=== PATIENT | male | born 1940 | race Hispanic/Latino ===

== ENCOUNTER → 2017-09-26 | Outpatient (CLI) | payer OTHER ==
[~2017-09-26] MED LIST: AMLO5TAB2 PO; CHLO10TA10 PO; CLOP75TA32 PO; HUM100IN SQ; LISI10TA7 PO; METO-408 PO; SIMV80TA5 PO; SITA1TAB6 PO; SODI650T PO; TAMS0.4C32 PO; TYL3 PO
== END | disposition home or self-care (01) ==
LOC: RAH 14:05
PROVIDERS: ATTEND Internal Medicine Cardiovascular Disease
DX: G11.0 Congenital nonprogressive ataxia (principal); R90.82 White matter disease, unspecified
CPT/HCPCS: 70450

== ENCOUNTER → 2018-05-10 | Outpatient (CLI) | payer OTHER ==
[~2018-05-10] MED LIST changes: -AMLO5TAB2 PO; +AMLO5TAB7 PO; +LIDOCAINE/PRILOCAINE CREAM 5GM TUBE TP ONE; -SIMV80TA5 PO; +SIMV80TA7 PO
[2018-05-10 13:23] VITALS: BP 190/93
== END | disposition home or self-care (01) ==
LOC: WHH 09:30
PROVIDERS: ATTEND Podiatrist Foot & Ankle Surgery
DX: E11.621 Type 2 diabetes mellitus with foot ulcer (principal); L97.521 Non-pressure chronic ulcer of other part of left foot limited to breakdown of skin; I10 Essential (primary) hypertension; E78.5 Hyperlipidemia, unspecified; E11.42 Type 2 diabetes mellitus with diabetic polyneuropathy; B35.1 Tinea unguium; L60.0 Ingrowing nail; Z79.4 Long term (current) use of insulin
CPT/HCPCS: 11721; 11730; J3490; L3260

== ENCOUNTER → 2018-06-19 | Outpatient (CLI) | payer OTHER ==
[~2018-06-19] MED LIST changes: +ISOVUE-370 50ML VIAL IV ONE; -LIDOCAINE/PRILOCAINE CREAM 5GM TUBE TP ONE
== END | disposition home or self-care (01) ==
LOC: OIH 08:17
PROVIDERS: ATTEND Urology
DX: K80.20 Calculus of gallbladder without cholecystitis without obstruction (principal); N28.89 Other specified disorders of kidney and ureter
CPT/HCPCS: 74178; Q9967

== ENCOUNTER → 2018-12-25 | Outpatient (CLI) | payer OTHER ==
[~2018-12-25] MED LIST changes: -AMLO5TAB7 PO; +AMLO5TAB9 PO; -ISOVUE-370 50ML VIAL IV ONE; -SIMV80TA7 PO; +SIMV80TA91 PO
== END | disposition home or self-care (01) ==
LOC: SHCH 08:13
PROVIDERS: ATTEND Internal Medicine Cardiovascular Disease
DX: I51.7 Cardiomegaly (principal); I34.0 Nonrheumatic mitral (valve) insufficiency; Z95.2 Presence of prosthetic heart valve
CPT/HCPCS: 93306

== ENCOUNTER 2019-07-04 08:24 | Emergency (ER) | payer OTHER ==
[2019-07-04] MEDS ORDERED: ONDANSETRON HCL 4 MG/2 ML VIAL ONE (08:48)
[2019-07-04] MEDS ORDERED: MORPHINE SULFATE 4 MG/1ML SYG ONE ×2 (08:48→11:37)
[2019-07-04 08:59] LABS: BASOPHILS % (AUTO) 0.4 % (0.0-5.0); EOSINOPHILS % (AUTO) 1.5 % (0.0-8.0); HEMATOCRIT 43.9 % (42-54); LYMPHOCYTES % (AUTO) 28.5 % (21.0-51.0); MEAN CORPUSCULAR HEMOGLOBIN 30.2 pg (27.0-33.0); MEAN CORPUSCULAR HGB CONC 33.7 g/dL (32.0-36.0); MEAN CORPUSCULAR VOLUME 89.6 fL (79-99); MONOCYTES % (AUTO) 5.7 % (3.0-13.0); NEUTROPHILS % (AUTO) 63.9 % (40.0-77.0); PLATELET COUNT (AUTO) 202 K/uL (130-400); RED CELL DISTRIBUTION WIDTH 14.6 % (11.0-15.5); WHITE BLOOD COUNT (AUTO) 8.2 K/uL (4.8-10.8)
[2019-07-04 09:01] LABS: APPEARANCE,URINE Clear (CLEAR); BILIRUBIN,URINE Negative (NEGATIVE); COLOR,URINE Yellow (YELLOW); GLUCOSE, URINE (UA) >=1000 mg/dL (NEGATIVE); KETONES,URINE Negative (NEGATIVE); LEUKOCYTE ESTERASE ,URINE Negative (NEGATIVE); NITRATE,URINE Negative (NEGATIVE); OCCULT BLOOD,URINE Negative (NEGATIVE); PROTEIN,URINE 300 mg/dL (NEGATIVE)
[2019-07-04 09:04] LABS: CREATININE 1.5 mg/dL (0.5-1.5); POTASSIUM 4.2 mmol/L (3.5-5.1)
[2019-07-04 09:05] LABS: INR 0.93 (0.85-1.15); PARTIAL THROMBOPLASTIN TIME 24.5 SEC (26.3-35.5); PROTHROMBIN TIME 9.8 SEC (9.6-11.6)
[2019-07-04 09:09] LABS: ALBUMIN 3.5 g/dL (3.5-5.0); BILIRUBIN,TOTAL 0.4 mg/dL (0.2-1.0); TOTAL PROTEIN, SERUM 7.2 g/dL (6.0-8.3)
[2019-07-04 09:14] LABS: BACTERIA,URINE Rare /HPF (None Seen); MUCUS,URINE Rare LPF (None Seen); RBC,URINE 0-1 /HPF (0-1); SPERM,URINE Moderate /HPF (None Seen); SQUAMOUS EPITHELIAL CELL,UR Rare /HPF (0-2)
== END 2019-07-04 12:27 | disposition home or self-care (01) ==
LOC: EDH 08:24
DX: K57.92 Diverticulitis of intestine, part unspecified, without perforation or abscess without bleeding (principal); E11.9 Type 2 diabetes mellitus without complications; E78.5 Hyperlipidemia, unspecified; I10 Essential (primary) hypertension; Z98.890 Other specified postprocedural states; Z87.891 Personal history of nicotine dependence
CPT/HCPCS: 36415; 74176; 80053; 81001; 82550; 83690; 84484; 85025; 85610; 85730; 93005; 96374; 96375; 96376; 99285; J2270 ×2; J2405

== ENCOUNTER 2019-11-20 22:49 | Emergency (ER) | payer OTHER ==
[~2019-11-20 22:49] MED LIST changes: -AMLO5TAB9 PO; -CHLO10TA10 PO; -CLOP75TA32 PO; -HUM100IN SQ; +HYDR25TA PO; +INSU3INS10 SQ; -LISI10TA7 PO; +LOSA100T2 PO; -METO-408 PO; +MORPHINE 15 MG PO; +MORPHINE IR PO; +OMEP40CA13 PO; +ONDA8TAB5 PO; +ONDA8TAB65 PO; +PIOG30TA70 PO; +SENN-183 PO; -SITA1TAB6 PO; -SODI650T PO; -TYL3 PO
[2019-11-20 23:31] LABS: BASOPHILS % (AUTO) 0.2 % (0.0-5.0); HEMATOCRIT 27.4 % (42-54); LYMPHOCYTES % (AUTO) 8.3 % (21.0-51.0); MEAN CORPUSCULAR HEMOGLOBIN 28.9 pg (27.0-33.0); MEAN CORPUSCULAR HGB CONC 32.5 g/dL (32.0-36.0); MONOCYTES % (AUTO) 1.1 % (3.0-13.0); NEUTROPHILS % (AUTO) 87.7 % (40.0-77.0); PLATELET COUNT (AUTO) 146 K/uL (130-400); RED BLOOD CELL COUNT(AUTO) 3.08 MIL/uL (4.50-6.20); RED CELL DISTRIBUTION WIDTH 14.5 % (11.0-15.5); WHITE BLOOD COUNT (AUTO) 10.4 K/uL (4.8-10.8)
[2019-11-20 23:44] LABS: ALBUMIN 1.8 g/dL (3.5-5.0); BILIRUBIN,DIRECT 0.2 mg/dL (0.0-0.3); BILIRUBIN,TOTAL 0.5 mg/dL (0.2-1.0); CREATININE 1.5 mg/dL (0.5-1.5); POTASSIUM 4.1 mmol/L (3.5-5.1); TOTAL PROTEIN, SERUM 5.6 g/dL (6.0-8.3)
[2019-11-20 23:48] LABS: INR 1.28 (0.85-1.15); PARTIAL THROMBOPLASTIN TIME 29.2 SEC (26.3-35.5); PROTHROMBIN TIME 13.7 SEC (9.6-11.6)
[2019-11-20] MEDS ORDERED: HYDROMORPHONE 1 MG/1 ML AMP ONE (23:54)
[2019-11-20] MEDS ORDERED: ONDANSETRON HCL 4 MG/2 ML VIAL ONE (23:54)
[2019-11-20] MEDS ORDERED: SODIUM CHLORIDE 0.9% 500ML 500 ML IV ONE (23:55)
[2019-11-20] MEDS ORDERED: SODIUM CHLORIDE 0.9% 1000ML 1,000 ML IV ONE (23:55)
[2019-11-21 00:10] LABS: APPEARANCE,URINE Clear (CLEAR); BILIRUBIN,URINE Negative (NEGATIVE); COLOR,URINE Dark Yellow (YELLOW); GLUCOSE, URINE (UA) >=1000 mg/dL (NEGATIVE); KETONES,URINE Trace mg/dL (NEGATIVE); LEUKOCYTE ESTERASE ,URINE Negative (NEGATIVE); NITRATE,URINE Negative (NEGATIVE); OCCULT BLOOD,URINE Negative (NEGATIVE); PROTEIN,URINE POS 2+ mg/dL (NEGATIVE); UROBILINOGEN,URINE 0.2 mg/dL (0.2-1.0)
[2019-11-21 00:30] LABS: BACTERIA,URINE None Seen /HPF (None Seen); RBC,URINE None Seen /HPF (0-1); SQUAMOUS EPITHELIAL CELL,UR Rare /HPF (0-2); WBC,URINE None Seen /HPF (0-1); YEAST,URINE BUDDING None Seen /HPF (None Seen)
[2019-11-21] MEDS ORDERED: INSULIN HUMULIN R 100 UNIT/ML 3ML ONE (01:32)
[2019-11-21] MEDS ORDERED: LEVOFLOXACIN 500 MG/D5W 100 ML 100 ML ONE (01:48)
[2019-11-21] MEDS ORDERED: METHYLPREDNISOLONE SOD SUCC 125MG/2ML VIAL ONE (01:48)
[2019-11-21 01:49] LABS: ABG OXYGEN SATURATION 22.1 % (95.0-99.0); BASE EXCESS,VENOUS BLOOD GAS -4.3 (-2.0-3.0); HCO3,VENOUS BLOOD GAS 20.6 (21.0-28.0); PCO2,VENOUS BLOOD GAS 37 (35-48); PH,VENOUS BLOOD GAS 7.359 (7.350-7.450)
[2019-11-21] MEDS ORDERED: SODIUM CHLORIDE 0.9% 1000ML 1,000 ML IV ONE (02:14)
== END 2019-11-21 03:52 | disposition home or self-care (01) ==
LOC: EDH 22:49
DX: E11.65 Type 2 diabetes mellitus with hyperglycemia (principal); I10 Essential (primary) hypertension; E78.5 Hyperlipidemia, unspecified; Z90.49 Acquired absence of other specified parts of digestive tract
CPT/HCPCS: 36415; 36600; 71045; 74176; 80048; 80076; 81001; 82550; 82803; 82948; 83690; 84484; 85025; 85610; 85730; 93005; 96361; 96374; 96375 ×2; 99285; J1170; J1815; J1956; J2405; J2930; J7030 ×2; J7040

== ENCOUNTER 2019-11-24 11:41 | Inpatient (IN) | payer OTHER ==
[~2019-11-24] VITALS: Ht 167.6 cm; Wt 69.5 kg
[2019-11-24] MEDS ORDERED: DEXTROSE 50%-WATER 50 ML DISP.SYRIN IV ONE ×2 (11:52→17:22)
[2019-11-24 14:40] LABS: BASOPHILS % (AUTO) 0.2 % (0.0-5.0); HEMATOCRIT 30.1 % (42-54); INR 1.13 (0.85-1.15); LYMPHOCYTES % (AUTO) 7.8 % (21.0-51.0); MEAN CORPUSCULAR HEMOGLOBIN 28.7 pg (27.0-33.0); MEAN CORPUSCULAR HGB CONC 32.6 g/dL (32.0-36.0); MEAN CORPUSCULAR VOLUME 88.3 fL (79-99); MONOCYTES % (AUTO) 4.6 % (3.0-13.0); NEUTROPHILS % (AUTO) 85.5 % (40.0-77.0); PARTIAL THROMBOPLASTIN TIME 29.2 SEC (26.3-35.5); PLATELET COUNT (AUTO) 159 K/uL (130-400); PROTHROMBIN TIME 12.1 SEC (9.6-11.6); RED BLOOD CELL COUNT(AUTO) 3.41 MIL/uL (4.50-6.20); RED CELL DISTRIBUTION WIDTH 14.7 % (11.0-15.5); WHITE BLOOD COUNT (AUTO) 23.2 K/uL (4.8-10.8)
[2019-11-24 15:13] LABS: APPEARANCE,URINE Cloudy (CLEAR); BILIRUBIN,URINE Small (NEGATIVE); COLOR,URINE Dark Yellow (YELLOW); GLUCOSE, URINE (UA) TRACE mg/dL (NEGATIVE); KETONES,URINE Negative (NEGATIVE); LEUKOCYTE ESTERASE ,URINE Negative (NEGATIVE); NITRATE,URINE Negative (NEGATIVE); OCCULT BLOOD,URINE Moderate (NEGATIVE); PROTEIN,URINE 300 mg/dL (NEGATIVE)
[2019-11-24 15:23] LABS: ALBUMIN 1.9 g/dL (3.5-5.0); BILIRUBIN,TOTAL 0.6 mg/dL (0.2-1.0); CREATININE 1.2 mg/dL (0.5-1.5); TROPONIN I 0.05 ng/mL (0.00-0.06)
[2019-11-24 15:24] LABS: POTASSIUM 2.7 mmol/L (3.5-5.1)
[2019-11-24] MEDS ORDERED: POTASSIUM CHLORIDE 20 MEQ ERTAB PO ONE ×3 (15:29→18:13)
[2019-11-24 16:13] LABS: BACTERIA,URINE Few /HPF (None Seen); MUCUS,URINE Few LPF (None Seen)
[2019-11-24] MEDS ORDERED: SODIUM CHLORIDE 0.9% 1000ML 1,000 ML IV ONE (18:13)
[2019-11-24] MEDS ORDERED: POTASSIUM CHLORIDE 20 MEQ ERTAB PO PRN (18:15)
[2019-11-24] MEDS ORDERED: POTASSIUM CHLORIDE 20MEQ/100ML 100 ML IV PRN (18:15)
[2019-11-24] MEDS: SODIUM CHLORIDE 0.9% 1000ML 1,000 ML IV SCH (18:15)
[2019-11-24] MEDS ORDERED: POTASSIUM CHLORIDE 10% ELIXIR 20 MEQ/15 ML UDCUP PO PRN (18:15)
[2019-11-24] MEDS ORDERED: ONDANSETRON HCL 4 MG/2 ML VIAL IVP PRN (18:15)
[2019-11-24 19:55] VITALS: BP 102/48
[2019-11-24] MEDS ORDERED: VITA1CAP85 PO (21:45)
[2019-11-24] MEDS ORDERED: DEXT1TAB48 PO (21:45)
[2019-11-24] MEDS: MORPHINE SULFATE 2 MG/ML 1ML SYG IVP PRN (21:48)
[2019-11-24] MEDS ORDERED: PIOG30TA70 PO (22:03)
[2019-11-24] MEDS ORDERED: PANT40TA25 PO (22:03)
[2019-11-24] MEDS ORDERED: FURO20TA4 PO (22:03)
[2019-11-24] MEDS: LIDOCAINE HCL-MPF 1% 2ML VIAL IJ PRN (22:35)
[2019-11-24 23:42] VITALS: BP 131/62
[2019-11-25] MEDS: LIDOCAINE HCL-MPF 1% 2ML VIAL IJ PRN (02:32)
[2019-11-25 03:00] VITALS: BP 121/57
[2019-11-25 05:29] LABS: HEMATOCRIT 26.9 % (42-54); MEAN CORPUSCULAR HEMOGLOBIN 28.8 pg (27.0-33.0); MEAN CORPUSCULAR HGB CONC 32.7 g/dL (32.0-36.0); MEAN CORPUSCULAR VOLUME 87.9 fL (79-99); PLATELET COUNT (AUTO) 132 K/uL (130-400); RED BLOOD CELL COUNT(AUTO) 3.06 MIL/uL (4.50-6.20); RED CELL DISTRIBUTION WIDTH 14.8 % (11.0-15.5); WHITE BLOOD COUNT (AUTO) 17.8 K/uL (4.8-10.8)
[2019-11-25 05:41] LABS: ALBUMIN 1.6 g/dL (3.5-5.0); BILIRUBIN,TOTAL 0.5 mg/dL (0.2-1.0); CREATININE 1.1 mg/dL (0.5-1.5); POTASSIUM 3.9 mmol/L (3.5-5.1); TOTAL PROTEIN, SERUM 5.2 g/dL (6.0-8.3)
[2019-11-25 06:01] LABS: BAND NEUTROPHILS % (MANUAL) 4 % (0-2); LYMPHOCYTES % (MANUAL) 12 % (22-44); MAN.DIFF COMMENT-IMPRESSION MANUAL DIFFERENTIAL; MONOCYTES % (MANUAL) 4 % (2-9); PLATELET MORPHOLOGY COMMENT ADEQUATE; REACTIVE LYMPHOCYTES 1 % (0-0); SEGMENTED NEUTROPHILS % 79 % (40-70)
[2019-11-25] MEDS: MORPHINE SULFATE 2 MG/ML 1ML SYG IVP PRN ×3 (06:17→19:03)
[2019-11-25] MEDS: SODIUM CHLORIDE 0.9% 1000ML 1,000 ML IV SCH ×2 (07:35→20:26)
[2019-11-25 07:49] VITALS: BP 112/62
[2019-11-25 12:16] VITALS: BP 130/65
--- NOTE | 2019-11-25 13:15 | NUR ---
Notified Dr. Yeh of RLE doppler results being negative for DVT. No new orders rec'd.
[2019-11-25] MEDS ORDERED: DIPHENHYDRAMINE HCL 25 MG CAPSULE PO PRN (16:15)
[2019-11-25 17:12] VITALS: BP 124/63
--- NOTE | 2019-11-25 19:14 | NUR ---
D/C PLAN CM spoke to pt and spouse regarding d/c planning. Pt lives with spouse. Denies having provider services. States daughter named Dasia also lives in home. Spouse asked CM about hospice services. States she has been discussing with daughter. CM explained that arrangements can be made prior to d/c if Dr. Kenny agrees to order services. CM explained that if oncologist does not want to order this admission, pt and spouse can discuss with their PCP Dr. Acevedo and obtain orders. Verbalized understanding. States she will be discussing with . CM to f/u. Addendum: 11/25/19 at 7 by CRISTEL GREGG Amended: Links added.
[2019-11-25] MEDS ORDERED: HONEY 1 APPL/ML TUBE TP ONE (19:19)
[2019-11-25] MEDS: HONEY 1 APPL/ML TUBE TP SCH (19:53)
[2019-11-25 20:00] VITALS: BP 121/63
--- NOTE | 2019-11-25 21:20 | NUR ---
patient refused bath several times. the and grandson present
[2019-11-26] VITALS (7 sets, daily range): BP systolic 126–138; BP diastolic 59–67
[2019-11-26] MEDS ORDERED: DEXTROSE 50%-WATER 50 ML DISP.SYRIN IV PRN (02:30)
[2019-11-26] MEDS ORDERED: GLUCAGON 1MG KIT 1 MG ML IM PRN (02:30)
[2019-11-26] MEDS: INSULIN HUMULIN R 100 UNIT/ML 3ML SQ SCH ×4 (05:53→20:40)
[2019-11-26] MEDS: MORPHINE SULFATE 2 MG/ML 1ML SYG IVP PRN ×4 (06:44→20:34)
--- NOTE | 2019-11-26 14:30 | NUR ---
CM NOTE NEW REFERRAL FOR HOSPICE BY DR. WHITFIELD. NORMAL FROM [facility] PRIMARY NURSE, MARLO HARLEY, MADE AWARE OF REFERRAL.
[2019-11-26] MEDS ORDERED: ZINC OXIDE OINT 30GM TUBE TP PRN (14:45)
[2019-11-26] MEDS: SODIUM CHLORIDE 0.9% 1000ML 1,000 ML IV SCH (17:19)
--- NOTE | 2019-11-26 17:40 | NUR ---
HOSPICE REFERRAL SW met with patient's , Caitlyn Pisano, [phone], regarding MD order for hospice. List of local hospice agencies provided to . [facility] signed for [facility]. [facility] placed in chart. Plan is for home as per . Referral sent. MARELY contacted Kelsey Tierney, [facility] Supervisor, regarding referral. Kelsey stated she would come and meet with family Kelsey later informed MARELY that she had met with patient's and acceptance was still pending. MARELY will follow up with patient's family and hospice regarding acceptance and discharge arrangements.
[2019-11-27] MEDS: MORPHINE SULFATE 2 MG/ML 1ML SYG IVP PRN ×2 (01:58→08:56)
[2019-11-27 03:44] VITALS: BP 145/77
[2019-11-27] MEDS: SODIUM CHLORIDE 0.9% 1000ML 1,000 ML IV SCH ×2 (05:16→12:55)
[2019-11-27] MEDS: INSULIN HUMULIN R 100 UNIT/ML 3ML SQ SCH ×2 (05:54→11:30)
[2019-11-27 07:45] VITALS: BP 142/74
[2019-11-27] MEDS: HONEY 1 APPL/ML TUBE TP SCH (08:56)
[2019-11-27 11:02] VITALS: BP 128/56
--- NOTE | 2019-11-27 13:51 | NUR ---
HOSPICE ACCEPTED Patient was accepted by [facility]. [facility] nurse came and met with family. Plan for home with hospice today. Family will take patient home via private vehicle. Patient's spouse stated that family does not want to sign Out of Hospital Do Not Resuscitate at this time. SW contacted Kelsey Tierney, [facility] Liaison notified. [facility] will follow up with patient at home. Patient's nurse, Lina made aware. Ruby BREEN also aware.
--- NOTE | 2019-11-27 16:11 | NUR ---
[id number] patient's signed IM Letter, I faxed IM letter to [id number] and placed in chart under consent tab
== END 2019-11-27 16:45 | DRG 637 ==
LOC: EDH 11:41 → EDHIP 17:35 → 3BH 20:57
PROVIDERS: ADMIT Internal Medicine Hematology & Oncology; ATTEND Internal Medicine Hematology & Oncology
DX: E11.649 Type 2 diabetes mellitus with hypoglycemia without coma (principal); E43 Unspecified severe protein-calorie malnutrition; G93.41 Metabolic encephalopathy; C17.0 Malignant neoplasm of duodenum; C25.9 Malignant neoplasm of pancreas, unspecified; C79.9 Secondary malignant neoplasm of unspecified site; L89.322 Pressure ulcer of left buttock, stage 2; E87.6 Hypokalemia; I25.10 Atherosclerotic heart disease of native coronary artery without angina pectoris; E78.5 Hyperlipidemia, unspecified; E86.0 Dehydration; I10 Essential (primary) hypertension; L89.159 Pressure ulcer of sacral region, unspecified stage; Z51.5 Encounter for palliative care; Z87.891 Personal history of nicotine dependence; Z90.49 Acquired absence of other specified parts of digestive tract
CPT/HCPCS: 36415; 71045; 80053; 81001; 82550; 82948; 83605; 83874; 84484; 85025; 85610; 85730; 87088; 93005; 93971; G0378; J1815; J2405; J3480; J3490; J7030; J7070; Q0163